=== PATIENT | male | born 1995 | race African-American/Black ===

== ENCOUNTER 2024-07-05 15:15 | Emergency (ER) | payer OTHER ==
[~2024-07-05] VITALS: Ht 185.4 cm; Wt 100.1 kg
[2024-07-05 17:47] VITALS: BP 133/76; TEMP 98.7; O2SAT 100
== END 2024-07-05 17:57 | disposition home or self-care (01) ==
LOC: M ED 15:15
DX: B34.8 Other viral infections of unspecified site (principal)